=== PATIENT | female | born 1990 | race Hispanic/Latino ===

== ENCOUNTER 2023-01-01 05:30 | Inpatient (IN) | payer OTHER ==
[2023-01-01] MEDS ORDERED: Promethazine HCl 25 MG/ML VIAL IM PRN (18:13)
[2023-01-01] MEDS ORDERED: Lidocaine 1% (PF) 30 ML VIAL SC PRN (18:13)
[2023-01-01] MEDS ORDERED: hydrALAZINE 20 MG/ML VIAL SLOW IVP PRN (18:13)
[2023-01-01] MEDS ORDERED: Ondansetron PF 4 MG/2 ML Vial IVP PRN (18:13)
[2023-01-01] MEDS ORDERED: NS w/ Oxytocin 30 units 500 ML IV SCH ×2 (18:15→19:30)
[2023-01-01] MEDS ORDERED: Diphenoxylate HCl/Atropine Tablet PO PRN (18:16)
[2023-01-01] MEDS ORDERED: Methylergonovine 0.2 MG/ML VIAL IM PRN (18:16)
[2023-01-01] MEDS ORDERED: Misoprostol 200 MCG TAB PR PRN (18:16)
[2023-01-01] MEDS ORDERED: Tranexamic Acid 1,000 MG/10 ML VIAL IVP PRN (18:16)
[2023-01-01] MEDS ORDERED: Ibuprofen 800 MG TAB PO PRN (18:16)
[2023-01-01] MEDS ORDERED: Acetaminophen 500 MG TAB PO PRN (18:16)
[2023-01-01] MEDS ORDERED: Carboprost 250 MCG/ML AMP IM PRN (18:16)
[2023-01-01] MEDS ORDERED: Misoprostol 100 MCG TAB VAG SCH (18:30)
[2023-01-01 18:54] LABS: Mean Corpuscular HGB CONC 30.7 g/dL (32.0-36.0); Mean Corpuscular Hemoglobin 25.3 pg (27.0-33.0); Mean Corpuscular Volume 82.3 fl (81.6-98.3); Mean Platelet Volume 10.9 fl (7.4-10.4); Platelet Count 331 10x3/uL (150-450); RBC Distribution Width 14.1 % (11.5-14.5); Red Blood Cell (RBC) Count 3.56 10x6/uL (3.90-5.03); White Blood Cell (WBC) Count 9.5 10x3/uL (3.5-10.5)
[2023-01-01] MEDS: Lactated Ringer's 1,000 ML IV SCH ×2 (19:18→22:28)
[2023-01-01 19:20] LABS: HBSAg Index 0.16 S/CO (0-0.99); Hep B Surf Ag - L&D Non-Reactive S/CO (NonReactive); Syphilis Antibody Nonreactive (Nonreactive); Syphilis Antibody Index 0.05 S/CO (<1.00 Non-Reactive)
[2023-01-01] MEDS ORDERED: fentaNYL 50 mcg/mL 1 mL Vial SLOW IVP PRN (19:59)
[2023-01-01] MEDS ORDERED: Fentanyl 2 mcg/Bup 0.1% Cadd 100 ML ONE (22:13)
[2023-01-02] MEDS: Lactated Ringer's 1,000 ML IV SCH ×2 (00:50→05:25)
[2023-01-02] MEDS ORDERED: Fentanyl 2 mcg/Bup 0.1% Cadd 100 ML ONE (05:15)
[2023-01-02] MEDS ORDERED: NS w/ Oxytocin 30 units 500 ML IV SCH ×2 (06:30)
[2023-01-02] MEDS ORDERED: ePHEDrine Sulfate 50 MG/10 ML VIAL ONE (07:00)
[2023-01-02] MEDS ORDERED: Bupivacaine 0.25% HCL 30 ML VIAL ONE (07:00)
[2023-01-02] MEDS ORDERED: Bupivacaine HCl 0.5%/Epinephrine 1:200,000/PF 30 ml Vial ONE (07:00)
[2023-01-02] MEDS ORDERED: hydrALAZINE 20 MG/ML VIAL SLOW IVP PRN (08:20)
[2023-01-02] MEDS ORDERED: Bisacodyl 10 MG SUPP PR PRN (08:20)
[2023-01-02] MEDS ORDERED: Ondansetron PF 4 MG/2 ML Vial IVP PRN (08:20)
[2023-01-02] MEDS ORDERED: Milk Of Magnesia 30 ML UDCUP PO PRN (08:20)
[2023-01-02 08:27] LABS: pH (Cord, venous) 7.376 (7.250-7.350)
[2023-01-02] MEDS ORDERED: Lanolin Ointment 7 GM TUBE TOP PRN (09:44)
[2023-01-02] MEDS: Ibuprofen 800 MG TAB PO SCH ×2 (12:27→20:02)
[2023-01-02] MEDS: Docusate 100 MG CAP PO SCH ×2 (12:28→20:02)
[2023-01-02] MEDS: Prenatal Vitamin 1 TAB PO SCH (12:28)
[2023-01-02] MEDS: Ferrous Sulfate 325 MG TAB PO SCH (18:37)
[2023-01-03] MEDS ORDERED: HYDROcodone/Acetaminophen 5/325 mg Tablet PO SCH (02:30)
[2023-01-03] MEDS: Ibuprofen 800 MG TAB PO SCH ×2 (03:45→12:30)
[2023-01-03 04:40] LABS: #Basophils 0.1 10x3/uL (0.0-0.2); #Eosinphils 0.2 10x3/uL (0.0-0.5); #Monocytes 1.1 10x3/uL (0.0-1.1); %Basophils 0.6 % (0.0-2.0); %Eosinophils 1.4 % (0.0-6.0); %Lymphocytes 22.5 % (18.0-47.0); Hemoglobin 7.9 g/dL (12.0-15.5); Mean Corpuscular HGB CONC 30.9 g/dL (32.0-36.0); Mean Corpuscular Hemoglobin 25.6 pg (27.0-33.0); Mean Corpuscular Volume 82.8 fl (81.6-98.3); Mean Platelet Volume 10.8 fl (7.4-10.4); Platelet Count 275 10x3/uL (150-450); RBC Distribution Width 14.4 % (11.5-14.5); Red Blood Cell (RBC) Count 3.09 10x6/uL (3.90-5.03); White Blood Cell (WBC) Count 10.8 10x3/uL (3.5-10.5)
[2023-01-03 08:03] VITALS: BP 101/57; TEMP 97.5
[2023-01-03] MEDS: Prenatal Vitamin 1 TAB PO SCH (08:57)
[2023-01-03] MEDS: Docusate 100 MG CAP PO SCH (08:57)
[2023-01-03] MEDS: Ferrous Sulfate 325 MG TAB PO SCH (08:57)
[2023-01-03 12:09] LABS: Hemoglobin 9.2 g/dL (12.0-15.5); Platelet Count 310 10x3/uL (150-450)
== END 2023-01-03 12:30 | disposition home or self-care (01) | DRG 807 ==
LOC: CSHLD 17:14 → CSHPP 01-02 10:16
PROVIDERS: ADMIT Obstetrics & Gynecology; ATTEND Obstetrics & Gynecology
PROC: 10D07Z6 Extraction of Products of Conception, Vacuum, Via Natural or Artificial Opening (ICD-10-PCS; principal; 2023-01-02)
DX: O24.425 Gestational diabetes mellitus in childbirth, controlled by oral hypoglycemic drugs (principal); Z37.0 Single live birth; Z3A.39 39 weeks gestation of pregnancy; Z79.84 Long term (current) use of oral hypoglycemic drugs; E66.9 Obesity, unspecified; O99.02 Anemia complicating childbirth; O99.214 Obesity complicating childbirth; Z79.899 Other long term (current) drug therapy; O76 Abnormality in fetal heart rate and rhythm complicating labor and delivery; O42.02 Full-term premature rupture of membranes, onset of labor within 24 hours of rupture; O70.0 First degree perineal laceration during delivery; D50.9 Iron deficiency anemia, unspecified
CPT/HCPCS: 36415; 36416; 51702; 82805; 85025; 85027; 86780; 86850; 86900; 86901; 87340; J2590; J7120; S0020